=== PATIENT | female | born 1945 | race Caucasian/White ===

== ENCOUNTER 2018-03-11 13:13 | Emergency (ER) | payer OTHER ==
[2018-03-11] MEDS ORDERED: NS 1,000 ML IV ONE ×2 (13:32→14:33)
[2018-03-11] MEDS ORDERED: DILTIAZEM 25 MG/5 ML VIAL IVP ONE (13:32)
--- NOTE | 2018-03-11 13:54 | EDPHY ---
H & P Stated Complaint: tachycardia/with ? hx afib Time Seen by Provider: 03/11/18 13:25 HPI/ROS: CHIEF COMPLAINT: Palpitations HISTORY OF PRESENT ILLNESS: The patient presents the ED with palpitations that began earlier today. The patient denies any chest pain or shortness of breath. She does have a remote history of atrial fibrillation x1. She had been prescribed diltiazem to take on an as-needed basis but has not yet taken the medication. The patient is not anticoagulated. She is currently taking Augmentin for treatment of a sinus infection. The patient denies any pleuritic chest pain. She denies any asymmetric calf pain or swelling. She denies any fever, cough or congestion. REVIEW OF SYSTEMS: A comprehensive 10 point review of systems is otherwise negative aside from elements mentioned in the history of present illness. Source: Patient, Family - Personal History Current Tetanus Diphtheria and Acellular Pertussis (TDAP): No - Medical/Surgical History Hx Asthma: No Hx Chronic Respiratory Disease: No Hx Diabetes: No Hx Cardiac Disease: Yes Hx Renal Disease: No Hx Cirrhosis: No Hx Alcoholism: No Hx HIV/AIDS: No Hx Splenectomy or Spleen Trauma: No Other PMH: Atrial fibrillation - Social History Smoking Status: Never smoked - Physical Exam Exam: General Appearance: Alert, no distress Eyes: Pupils equal and round no pallor or injection ENT, Mouth: Mucous membranes moist Respiratory: There are no retractions, lungs are clear to auscultation Cardiovascular: Tachycardic, irregular Gastrointestinal: Abdomen is soft and nontender, no masses, bowel sounds normal Neurological: A&O, normal motor function, normal sensory exam, normal cranial nerves Skin: Warm and dry, no rashes Musculoskeletal: Neck is supple nontender Extremities: symmetrical, full range of motion Psychiatric: Patient is oriented X 3, there is no agitation Constitutional: Initial Vital Signs Temperature (C) 36.5 C 03/11/18 13:18 Heart Rate 157 H 03/11/18 13:18 Respiratory Rate 20 03/11/18 13:18 Blood Pressure 105/93 H 03/11/18 13:18 O2 Sat (%) 97 03/11/18 13:18 O2 Delivery Mode Nasal Cannula O2 (L/minute) 2 Allergies/Adverse Reactions: erythromycin base [Erythromycin Base] Allergy (Intermediate, Verified 03/11/18 13:17) Rash Home Medications: Medication Instructions Recorded Calcium Carb W/Vit D [Calcium Carb 1,000 mg PO DAILY 06/17/12 W/Vit D 500/200 (OTC)] Cholecalciferol Vit D3 [Vitamin D3 2,000 units PO DAILY 06/17/12 1000 units (OTC)] Estradiol [Vivelle-Dot 0.05MG (RX)] 0.05 mg TD SuWe@0800 06/17/12 Ferrous Sulfate [Ferrous Sulf 325 325 mg PO DAILY 06/17/12 MG (OTC)] Herbals/Supplements -Info Only 1 each PO AD 06/17/12 Multivitamins [Tab-A-Carolynn] 1 each PO DAILY 06/17/12 Aspirin 325 mg (*) 03/11/18 Medical Decision Making - Diagnostics EKG Interpretation: EKG: Complete interpretation has been separately recorded in the [employer] archive. Summary impression: Atrial fibrillation, rate 142 Repeat EKG: EKG: Complete interpretation has been separately recorded in the [employer] archive. Summary impression: Sinus rhythm, single PAC, no ischemic changes ED Course/Re-evaluation: ED course: Patient presents the ED with AFib with rapid ventricular response. The patient had an IV established. She received 20 mg of diltiazem IV push and 1 L of normal saline. Patient was noted to have intermittent bradycardia before converting to a normal sinus rhythm which was noted to occur at 2:30 p.m.. Re-examination at 3:15 p.m.: Blood pressure 102/63, heart rate 63 and sinus. Chastity consultation with Dr. Garcia from Cardiology. He does recommend beginning a daily aspirin. He would like the patient to follow up in clinic this week to discuss possible long-term anticoagulation. Patient will be discharged from the emergency department with instructions return to the ED for chest pain, shortness of breath or other concerns. - Data Points Laboratory Results: Laboratory Results 03/11/18 13:40 03/11/18 13:40 03/11/18 03/11/18 03/11/18 13:40 13:40 13:35 WBC 7.62 10^3/uL 10^3/uL (3.80-9.50) RBC 5.17 10^6/uL 10^6/uL (4.18-5.33) Hgb 15.9 g/dL g/dL (12.6-16.3) Hct 46.3 % % (38.0-47.0) MCV 89.6 fL fL (81.5-99.8) MCH 30.8 pg pg (27.9-34.1) MCHC 34.3 g/dL g/dL (32.4-36.7) RDW 12.7 % % (11.5-15.2) Plt Count 297 10^3/uL 10^3/uL (150-400) MPV 10.0 fL fL (8.7-11.7) Neut % (Auto) 61.1 % % (39.3-74.2) Lymph % (Auto) 29.3 % % (15.0-45.0) Arthur % (Auto) 7.6 % % (4.5-13.0) Eos % (Auto) 1.2 % % (0.6-7.6) Baso % (Auto) 0.5 % % (0.3-1.7) Nucleat RBC Rel Count 0.0 % % (0.0-0.2) Absolute Neuts (auto) 4.66 10^3/uL 10^3/uL (1.70-6.50) Absolute Lymphs (auto) 2.23 10^3/uL 10^3/uL (1.00-3.00) Absolute Monos (auto) 0.58 10^3/uL 10^3/uL (0.30-0.80) Absolute Eos (auto) 0.09 10^3/uL 10^3/uL (0.03-0.40) Absolute Basos (auto) 0.04 10^3/uL 10^3/uL (0.02-0.10) Absolute Nucleated RBC 0.00 10^3/uL 10^3/uL (0-0.01) Immature Gran % 0.3 % % (0.0-1.1) Immature Gran # 0.02 10^3/uL 10^3/uL (0.00-0.10) Sodium 136 mEq/L mEq/L (135-145) Potassium 4.9 mEq/L mEq/L (3.5-5.2) Chloride 103 mEq/L mEq/L (97-110) Carbon Dioxide 25 mEq/l mEq/l (22-31) Anion Gap 8 mEq/L mEq/L (6-14) BUN 16 mg/dL mg/dL (7-23) Creatinine 0.7 mg/dL mg/dL (0.6-1.0) Estimated GFR > 60 Glucose 87 mg/dL mg/dL (70-100) Calcium 9.6 mg/dL mg/dL (8.5-10.4) POC Troponin I 0.01 ng/mL ng/mL (0.00-0.08) Medications Given: Discontinued Medications Diltiazem HCl (Cardizem 25 Mg/5 Ml Vial) 20 mg IVP EDNOW ONE Stop: 03/11/18 13:33 Last Admin: 03/11/18 13:41 Dose: 20 mg Sodium Chloride (Ns) 1,000 mls @ 0 mls/hr IV EDNOW ONE; Wide Open PRN Reason: Protocol Stop: 03/11/18 13:33 Last Admin: 03/11/18 13:41 Dose: 1,000 mls Sodium Chloride (Ns) 1,000 mls @ 0 mls/hr IV EDNOW ONE; Wide Open PRN Reason: Protocol Stop: 03/11/18 14:34 Last Admin: 03/11/18 14:44 Dose: 1,000 mls Point of Care Test Results: Chemistry 03/11/18 13:35 POC Troponin I 0.01 ng/mL ng/mL (0.00-0.08) Departure - Departure Disposition: Home, Routine, Self-Care Clinical Impression: Atrial fibrillation Condition: Good Instructions: A-fib (Atrial Fibrillation) (ED) Additional Instructions: 1. Return to the ED for recurrent palpitations, lightheadedness, chest pain or shortness of breath. 2. Please contact [facility] to schedule a follow-up appointment with Cardiology within the next week. They may recommend that you begin long-term anticoagulation. Referrals: Bhaskar Garcia MD [Medical Doctor] - As per Instructions
[2018-03-11 13:56] LABS: PLATELET COUNT 297 10^3/uL (150-400)
--- NOTE | 2018-03-11 14:44 | CPEKG ---
Test Reason : OPEN Blood Pressure : / mmHG Vent. Rate : 142 BPM Atrial Rate : 174 BPM P-R Int : 168 ms QRS Dur : 081 ms QT Int : 313 ms P-R-T Axes : 000 077 062 degrees QTc Int : [address] depression, probably rate related Confirmed by Silvano Castelan ([id number]) on 03/11/2018 2:44:21 PM Referred By: PHYSICIAN ED Confirmed By:Silvano Castelan
--- NOTE | 2018-03-11 14:44 | CPEKG ---
Test Reason : OPEN Blood Pressure : / mmHG Vent. Rate : 051 BPM Atrial Rate : 093 BPM P-R Int : 171 ms QRS Dur : 089 ms QT Int : 447 ms P-R-T Axes : 083 086 071 degrees QTc Int : 412 ms Sinus rhythm Atrial premature complex Borderline right axis deviation Confirmed by Silvano Castelan ([id number]) on 03/11/2018 2:44:49 PM Referred By: Silvano Castelan Confirmed By:Silvano Castelan
[2018-03-11 15:34] VITALS: BP 112/65
== END 2018-03-11 15:33 | disposition home or self-care (01) ==
DX: I48.91 Unspecified atrial fibrillation (principal); E86.9 Volume depletion, unspecified
CPT/HCPCS: 84484-ER; 96374